=== PATIENT | female | born 2000 ===

== ENCOUNTER 2021-03-18 14:46 | Emergency (ER) | payer SELFPAY ==
[2021-03-18 14:52] VITALS: BP 117/73
[2021-03-18 19:15] LABS: HCG Qualitative,Urine Negative (Negative)
--- NOTE | 2021-03-18 19:21 | Emergency Department Report ---
ED Female HPI - General Chief complaint: Back Pain/Injury Stated complaint: LOWER BACK PAIN Source: patient Mode of arrival: Ambulatory Limitations: No Limitations - History of Present Illness Initial comments: 20-year-old female presents to the ED complaining dysuria and low back pain x 3 days. Patient denies any trauma or recent injury. Patient denies any vaginal discharge or vaginal bleeding. She does complain of frequent urination x2 days. She is alert and oriented x4. Onset/Timin -: days(s) Last Menstrual Period: 03/12/21 EDC: 12/17/21 Associated Symptoms: denies other symptoms - Related Data Sexually active: Yes Previous Rx's Medication Instructions Recorded Last Taken Type Nitrofurantoin Hubbard/M-Cryst 100 mg PO Q12HR 7 Days #14 capsule 03/18/21 Unknown Rx [Macrobid CAP] Phenazopyridine [Pyridium] 200 mg PO BID 3 Days #6 tab 03/18/21 Unknown Rx Allergies Allergy/AdvReac Type Severity Reaction Status Date / Time No Known Allergies Allergy Unverified 03/18/21 14:49 ED Review of Systems ROS: Stated complaint: LOWER BACK PAIN Other details as noted in HPI Constitutional: denies: chills, fever Eyes: denies: eye pain, eye discharge, vision change ENT: denies: ear pain, throat pain Respiratory: denies: cough, shortness of breath, wheezing Cardiovascular: denies: chest pain, palpitations Endocrine: no symptoms reported Gastrointestinal: denies: abdominal pain, nausea, diarrhea Genitourinary: dysuria. denies: urgency, discharge Musculoskeletal: back pain. denies: joint swelling, arthralgia Skin: denies: rash, lesions Neurological: denies: headache, weakness, paresthesias Psychiatric: denies: anxiety, depression Hematological/Lymphatic: denies: easy bleeding, easy bruising ED Past Medical Hx - Past Medical History Previous Medical History?: Yes Hx Asthma: Yes - Medications Home Medications: Home Medications Medication Instructions Recorded Confirmed Last Taken Type Nitrofurantoin Hubbard/M-Cryst 100 mg PO Q12HR 7 Days #14 capsule 03/18/21 Unknown Rx [Macrobid CAP] Phenazopyridine [Pyridium] 200 mg PO BID 3 Days #6 tab 03/18/21 Unknown Rx ED Physical Exam - General Limitations: No Limitations General appearance: alert, in no apparent distress - Head Head exam: Present: atraumatic, normocephalic - Eye Eye exam: Present: normal appearance - ENT ENT exam: Present: mucous membranes moist - Neck Neck exam: Present: normal inspection - Respiratory Respiratory exam: Present: normal lung sounds bilaterally. Absent: respiratory distress - Cardiovascular Cardiovascular Exam: Present: regular rate, normal rhythm. Absent: systolic murmur, diastolic murmur, rubs, gallop - GI/Abdominal GI/Abdominal exam: Present: soft, normal bowel sounds - Extremities Exam Extremities exam: Present: normal inspection - Back Exam Back exam: Present: normal inspection. Absent: tenderness, CVA tenderness (R) - Neurological Exam Neurological exam: Present: alert, oriented X3 - Psychiatric Psychiatric exam: Present: normal affect, normal mood - Skin Skin exam: Present: warm, dry, intact, normal color. Absent: rash ED Course Vital Signs 03/18/21 14:49 Temperature 98.3 F Pulse Rate 82 Respiratory 16 Rate Blood Pressure 117/73 [Right] O2 Sat by Pulse 99 Oximetry ED Medical Decision Making - Lab Data Result diagrams: 03/18/21 19:15 - Medical Decision Making 20-year-old female presents to the ED complaining dysuria and low back pain x 3 days. Patient is denies any trauma or recent injury. Patient denies any vaginal discharge or vaginal bleeding. She does complain of frequent urination x2 days. She is alert and oriented x4. The patient's symptoms patient will be treated for acute urinary tract infection. Instructed to use the bathroom more frequently at work . Discussed all lab work and follow-up plan with patient. She verbalized understanding. Critical care attestation.: If time is entered above; I have spent that time in minutes in the direct care of this critically ill patient, excluding procedure time. ED Disposition Clinical Impression: Acute urinary tract infection Disposition: HOME / SELF CARE / HOMELESS Is pt being admited?: No Does the pt Need Aspirin: No Condition: Stable Instructions: Urinary Tract Infection, Adult, Antibiotic Medicine, Adult Additional Instructions: Please follow-up with primary care doctor Drink plenty of fluids Take antibiotic as ordered Return to ED for worsening symptoms Prescriptions: Nitrofurantoin Hubbard/M-Cryst [Macrobid CAP] 100 mg PO Q12HR 7 Days #14 capsule Phenazopyridine [Pyridium] 200 mg PO BID 3 Days #6 tab Referrals: [facility] [Provider Group] - 3-5 Days Time of Disposition: 20:11
[2021-03-18 19:34] LABS: Bilirubin,Urine NEG (Negative); Blood,Urine NEG (Negative); Color,Urine Yellow (Yellow); Mucus,Urine FEW /HPF; Protein,Urine <15 mg/dL mg/dL (Negative); Urobilinogen,Urine < 2.0 mg/dL (<2.0)
[2021-03-18 19:42] LABS: Basophils # (Auto) 0.1 K/mm3 (0.0-0.1); Basophils % (Auto) 0.8 % (0.0-1.8); Eosinophils # (Auto) 0.2 K/mm3 (0.0-0.4); Eosinophils % (Auto) 2.1 % (0.0-4.3); Hematocrit 41.2 % (30.3-42.9); Hemoglobin 13.4 gm/dl (10.1-14.3); Lymphocytes # (Auto) 3.6 K/mm3 (1.2-5.4); Lymphocytes % (Auto) 31.1 % (13.4-35.0); Mean Corpuscular HGB Conc 32 % (30-34); Mean Corpuscular Volume 83 fl (79-97); Monocytes # (Auto) 0.9 K/mm3 (0.0-0.8); Monocytes % (Auto) 7.4 % (0.0-7.3); Platelet Count 411 K/mm3 (140-440); Red Blood Count 4.99 M/mm3 (3.65-5.03); Red Cell Distribution Width 15.6 % (13.2-15.2)
== END 2021-03-18 20:56 | disposition home or self-care (01) ==
LOC: ED 14:46
DX: N39.0 Urinary tract infection, site not specified (principal); J45.909 Unspecified asthma, uncomplicated
CPT/HCPCS: 36415; 81001; 81025; 85025; 99283